=== PATIENT | female | born 1995 | race Caucasian/White ===

== ENCOUNTER 2021-06-10 20:29 | Emergency (ER) | payer OTHER ==
[2021-06-11] MEDS ORDERED: ETODOLAC300 MG PO (00:57)
[2021-06-11] MEDS ORDERED: NORCO 5-325 TA1 EACH PO (00:57)
[2021-06-11] MEDS ORDERED: SILVADENE20 GM TOP (00:57)
== END 2021-06-11 01:07 | disposition home or self-care (01) ==
LOC: FER 20:29
DX: T23.232A Burn of second degree of multiple left fingers (nail), not including thumb, initial encounter (principal); F17.210 Nicotine dependence, cigarettes, uncomplicated; Z88.8 Allergy status to other drugs, medicaments and biological substances; X10.2XXA Contact with fats and cooking oils, initial encounter; Y92.89 Other specified places as the place of occurrence of the external cause; Y99.0 Civilian activity done for income or pay
CPT/HCPCS: 90471; 90715; 99283